=== PATIENT | male | born 1960 | race Caucasian/White ===

== ENCOUNTER 2017-08-15 07:47 | Inpatient (IN) | payer BC, OTHER ==
[2017-08-15 07:57] LABS: ADD MAN DIFF? NO
[2017-08-15 08:00] LABS: BASO % 1 % (0-3); EOS % 1 % (0-3); HEMATOCRIT 47.7 % (39.0-53.0); HEMOGLOBIN 16.4 g/dL (13.0-17.5); LYMPH # 1.4 x10^3/uL (1.0-4.8); LYMPH % 20 % (24-48); MEAN CORPUSCULAR HEMOGLOBIN 31 pg (25-35); MEAN CORPUSCULAR HGB CONC 35 g/dL (31-37); MEAN CORPUSCULAR VOLUME 89 fL (79-100); MONO # 0.6 x10^3/uL (0.0-1.1); MONO % 8 % (0-9); NEUT % 71 % (31-73); PLATELET COUNT 232 x10^3/uL (140-400); RED BLOOD COUNT 5.39 x10^6/uL (4.30-5.70)
[2017-08-15] MEDS ORDERED: 0.9 % SODIUM CHLORIDE 10 ML DISP.SYRIN. IV (08:00)
[2017-08-15] MEDS: NITROGLYCERIN SUBLINGUAL 0.4 MG BOTTLE OF 25. SL (08:02)
[2017-08-15] MEDS: IV NORMAL SALINE 1000ML BAG 1,000 ML IV ×3 (08:02→19:56)
[2017-08-15 08:09] LABS: ANION GAP 7 (6-14); BLOOD UREA NITROGEN 19 mg/dL (8-26); CALCIUM 9.3 mg/dL (8.5-10.1); CARBON DIOXIDE 28 mmol/L (21-32); CHLORIDE 102 mmol/L (98-107); CREATININE 0.9 mg/dL (0.7-1.3); GFR 86.4; GLUCOSE 111 mg/dL (70-99); SODIUM 137 mmol/L (136-145)
[2017-08-15] MEDS: MORPHINE SULFATE 4 MG/ML DISP.SYRIN. IV/SQ ×2 (08:14→09:45)
[2017-08-15 08:15] LABS: ALBUMIN 3.8 g/dL (3.4-5.0); ALK PHOS 93 U/L (46-116); ALT (SGPT) 39 U/L (16-63); AST (SGOT) 24 U/L (15-37); DIRECT BILIRUBIN 0.1 mg/dL (0.0-0.2); LIPASE 80 U/L (73-393); MAGNESIUM 2.1 mg/dL (1.8-2.4); TOTAL BILIRUBIN 0.6 mg/dL (0.2-1.0); TOTAL PROTEIN 7.7 g/dL (6.4-8.2)
[2017-08-15 08:19] LABS: TROPONINI < 0.017 ng/mL (0.000-0.055)
[2017-08-15 08:23] LABS: NT-PRO BNP 40 pg/mL (0-124); THYROID STIM HORMONE (TSH) 2.769 uIU/mL (0.358-3.74)
[2017-08-15 08:23] LABS: CKMB INDEX 3.1 % (0-4); CKMB MASS 5.5 ng/mL (0.0-3.6); CREATINE KINASE 180 U/L (39-308)
[2017-08-15] MEDS ORDERED: ONDANSETRON PF 4 MG/2 ML VIAL. IV (09:00)
[2017-08-15 09:32] LABS: BILIRUBIN,URINE NEGATIVE (NEG); CLARITY,URINE CLEAR; COLOR,URINE YELLOW; GLUCOSE,URINE NEGATIVE (NEG); NITRITE,URINE NEGATIVE (NEG); PROTEIN,URINE NEGATIVE (NEG-TRACE); UROBILINOGEN,URINE 0.2 mg/dL (0.2 mg/dL)
[2017-08-15 09:41] LABS: BACTERIA,URINE MODERATE /HPF (0-FEW); SQUAMOUS EPITHELIAL CELL,UR MANY /LPF
[2017-08-15] MEDS: KETOROLAC 30 MG/ML INJ. IV (11:00)
[2017-08-15 12:16] LABS: TROPONINI < 0.017 ng/mL (0.000-0.055)
[2017-08-15] MEDS: MORPHINE SULFATE 4 MG/ML DISP.SYRIN. IV ×3 (15:05→19:56)
[2017-08-15 15:56] LABS: TROPONINI < 0.017 ng/mL (0.000-0.055)
[2017-08-16] MEDS: MORPHINE SULFATE 4 MG/ML DISP.SYRIN. IV (02:32)
[2017-08-16] MEDS: IV NORMAL SALINE 1000ML BAG 1,000 ML IV (02:36)
[2017-08-16 07:04] LABS: CHOLESTEROL 159 mg/dL (0-200); HDLC 38 mg/dL (40-60); LDLC 105 mg/dL (0-100); NON-HDL CHOLESTEROL 121 mg/dL (0-129); TRIGLYCERIDES 82 mg/dL (0-150); VLDLC 16 mg/dL (0-40)
[2017-08-16 07:10] LABS: CHOLESTEROL/HDL RATIO 4.2
[2017-08-16] MEDS: REGADENOSON 0.4 MG/5 ML DISP.SYRIN. IV (09:22)
[2017-08-16] MEDS: ONDANSETRON PF 4 MG/2 ML VIAL. IV ×2 (13:08→17:04)
[2017-08-16] MEDS: PANTOPRAZOLE IV PUSH 40 MG VIAL. IVP (13:22)
[2017-08-16] MEDS: fentaNYL PF VIAL 100 MCG/2 ML VIAL IV ×2 (13:23→20:38)
[2017-08-16] MEDS: IV DEXTROSE 5% - 0.9 % NACL 1,000 ML IV (17:05)
[2017-08-17] MEDS: fentaNYL PF VIAL 100 MCG/2 ML VIAL IV ×4 (01:49→12:19)
[2017-08-17] MEDS: IV DEXTROSE 5% - 0.9 % NACL 1,000 ML IV (01:54)
[2017-08-17] MEDS ORDERED: fentaNYL PF VIAL 100 MCG/2 ML VIAL IV ×2 (11:45)
[2017-08-17] MEDS ORDERED: MORPHINE SULFATE 4 MG/ML DISP.SYRIN. IV (11:45)
[2017-08-17] MEDS ORDERED: LIDOCAINE 1% PF 2 ML VIAL. ID (11:45)
[2017-08-17] MEDS ORDERED: HYDROmorphone 2 MG/ML VIAL IV (11:45)
[2017-08-17] MEDS ORDERED: PROCHLORPERAZINE 10 MG/2 ML VIAL. IV (11:45)
[2017-08-17] MEDS: ONDANSETRON PF 4 MG/2 ML VIAL. IV (13:26)
[2017-08-17] MEDS ORDERED: GLUCAGON,HUMAN RECOMBINANT 1 MG/ML VIAL. (15:31)
[2017-08-17] MEDS: IV RINGERS,LACTATED 1000ML 1,000 ML IV (15:42)
[2017-08-17] MEDS ORDERED: ROCURONIUM 50 MG/5 ML VIAL. (17:18)
[2017-08-17] MEDS ORDERED: PROPOFOL 20 ML IV (17:18)
[2017-08-17] MEDS ORDERED: LIDOCAINE 1% PF 5 ML VIAL. (17:18)
[2017-08-17] MEDS ORDERED: fentaNYL PF VIAL 100 MCG/2 ML VIAL (17:19)
[2017-08-17] MEDS ORDERED: DESFLURANE 31 TO 60 MINUTES IH (18:34)
[2017-08-17] MEDS ORDERED: DEXAMETHASONE SOD PHOS 20 MG/5 ML VIAL. (18:34)
[2017-08-17] MEDS: BUPIVACAINE-EPI 0.25%-1:200000 50 ML VIAL. (18:39)
[2017-08-17] MEDS: SURGICEL HEMOSTAT 4X8 EACH. (18:39)
[2017-08-17] MEDS: IOHEXOL 300 MG/ML 100ML VIAL. (18:39)
[2017-08-17] MEDS ORDERED: GLYCOPYRROLATE 1 MG/5 ML VIAL. (18:41)
[2017-08-17] MEDS ORDERED: NEOSTIGMINE 10 MG/10 ML VIAL. (18:41)
[2017-08-17] MEDS ORDERED: ONDANSETRON PF 4 MG/2 ML VIAL. (18:42)
[2017-08-17] MEDS ORDERED: oxyCODONE/APAP 5/325 1 TAB TABLET PO (19:30)
[2017-08-17] MEDS ORDERED: diphenhydrAMINE 50 MG/ML VIAL IV (19:30)
[2017-08-17] MEDS ORDERED: 0.9 % SODIUM CHLORIDE 10 ML DISP.SYRIN. IV (19:30)
[2017-08-17] MEDS ORDERED: diphenhydrAMINE HCL 25 MG CAPSULE PO (19:30)
[2017-08-17] MEDS ORDERED: DEXTROSE 50% 25 GM / 50ML DISP.SYRIN. IV (19:30)
[2017-08-17] MEDS: DOCUSATE SODIUM 100 MG CAPSULE. PO (21:56)
[2017-08-17] MEDS: oxyCODONE/APAP 5/325 1 TAB TABLET PO (21:57)
[2017-08-17] MEDS: MORPHINE SULFATE 4 MG/ML DISP.SYRIN. IV (23:34)
[2017-08-18] MEDS: IV DEXTROSE 5% - 0.9 % NACL 1,000 ML IV ×2 (00:50→12:16)
[2017-08-18] MEDS: MORPHINE SULFATE 4 MG/ML DISP.SYRIN. IV ×2 (05:13→13:38)
[2017-08-18] MEDS: DOCUSATE SODIUM 100 MG CAPSULE. PO ×2 (08:58→20:35)
[2017-08-18] MEDS: ENOXAPARIN 40 MG/0.4 ML SYRINGE. SQ (08:58)
[2017-08-18] MEDS: AMOXICILLIN/K CLAV 875/125MG TABLET. PO ×2 (10:06→20:35)
[2017-08-18] MEDS: LACTOBACILLUS RHAMNOSUS GG 1 CAPSULE. PO (20:35)
[2017-08-18] MEDS: TAMSULOSIN 0.4 MG CAP.ER.24H. PO (20:35)
[2017-08-18] MEDS: oxyCODONE/APAP 5/325 1 TAB TABLET PO (20:36)
[2017-08-18] MEDS: guaiFENesin DM 200MG/20MG 10 ML SYRUP PO (22:33)
[2017-08-19] MEDS: ONDANSETRON PF 4 MG/2 ML VIAL. IV ×2 (00:07→13:10)
[2017-08-19] MEDS: IV DEXTROSE 5% - 0.9 % NACL 1,000 ML IV ×3 (00:08→21:24)
[2017-08-19] MEDS: IPRATRPIUM/ALBUTEROL 0.5/2.5MG 3 ML NEBU. NEB ×3 (00:17→19:38)
[2017-08-19] MEDS: oxyCODONE/APAP 5/325 1 TAB TABLET PO ×2 (04:41→16:42)
[2017-08-19] MEDS: guaiFENesin DM 200MG/20MG 10 ML SYRUP PO (06:59)
[2017-08-19] MEDS: LACTOBACILLUS RHAMNOSUS GG 1 CAPSULE. PO ×2 (08:22→21:26)
[2017-08-19] MEDS: AMOXICILLIN/K CLAV 875/125MG TABLET. PO ×2 (08:22→21:23)
[2017-08-19] MEDS: DOCUSATE SODIUM 100 MG CAPSULE. PO ×2 (08:22→21:23)
[2017-08-19] MEDS: ENOXAPARIN 40 MG/0.4 ML SYRINGE. SQ (08:25)
[2017-08-19] MEDS ORDERED: METOCLOPRAMIDE HCL 10 MG/2 ML VIAL. IV (08:30)
[2017-08-19 09:45] LABS: ADD MAN DIFF? NO
[2017-08-19 10:02] LABS: BASO % 1 % (0-3); EOS # 0.1 x10^3/uL (0.0-0.7); EOS % 1 % (0-3); HEMATOCRIT 45.9 % (39.0-53.0); HEMOGLOBIN 15.5 g/dL (13.0-17.5); LYMPH % 13 % (24-48); MEAN CORPUSCULAR HEMOGLOBIN 30 pg (25-35); MEAN CORPUSCULAR HGB CONC 34 g/dL (31-37); MEAN CORPUSCULAR VOLUME 89 fL (79-100); MONO # 0.6 x10^3/uL (0.0-1.1); MONO % 8 % (0-9); NEUT % 78 % (31-73); PLATELET COUNT 251 x10^3/uL (140-400); RED BLOOD COUNT 5.14 x10^6/uL (4.30-5.70); RED CELL DISTRIBUTION WIDTH 12.5 % (11.5-14.5); WHITE BLOOD COUNT 7.6 x10^3/uL (4.0-11.0)
[2017-08-19 10:08] LABS: ANION GAP 12 (6-14); BLOOD UREA NITROGEN 13 mg/dL (8-26); CALCIUM 7.9 mg/dL (8.5-10.1); CARBON DIOXIDE 27 mmol/L (21-32); CHLORIDE 103 mmol/L (98-107); CREATININE 0.8 mg/dL (0.7-1.3); GFR 98.9; GLUCOSE 113 mg/dL (70-99); POTASSIUM 3.5 mmol/L (3.5-5.1); SODIUM 142 mmol/L (136-145)
[2017-08-19] MEDS: FAMOTIDINE 20 MG TABLET. PO ×2 (10:25→21:23)
[2017-08-19] MEDS ORDERED: INSULIN LISPRO 300 UNITS/3 ML INSULN.PEN. SQ (21:00)
[2017-08-19] MEDS: TAMSULOSIN 0.4 MG CAP.ER.24H. PO (21:23)
[2017-08-20 04:47] LABS: ADD MAN DIFF? NO
[2017-08-20 04:54] LABS: BASO % 1 % (0-3); EOS # 0.1 x10^3/uL (0.0-0.7); EOS % 2 % (0-3); HEMATOCRIT 41.1 % (39.0-53.0); HEMOGLOBIN 14.2 g/dL (13.0-17.5); LYMPH % 17 % (24-48); MEAN CORPUSCULAR HEMOGLOBIN 31 pg (25-35); MEAN CORPUSCULAR HGB CONC 35 g/dL (31-37); MEAN CORPUSCULAR VOLUME 89 fL (79-100); MONO # 0.5 x10^3/uL (0.0-1.1); MONO % 9 % (0-9); NEUT # 4.2 x10^3uL (1.8-7.7); NEUT % 71 % (31-73); PLATELET COUNT 237 x10^3/uL (140-400); RED BLOOD COUNT 4.63 x10^6/uL (4.30-5.70); RED CELL DISTRIBUTION WIDTH 12.8 % (11.5-14.5); WHITE BLOOD COUNT 5.9 x10^3/uL (4.0-11.0)
[2017-08-20 05:15] LABS: ANION GAP 6 (6-14); BLOOD UREA NITROGEN 12 mg/dL (8-26); CALCIUM 8.5 mg/dL (8.5-10.1); CARBON DIOXIDE 29 mmol/L (21-32); CHLORIDE 104 mmol/L (98-107); CREATININE 0.7 mg/dL (0.7-1.3); GFR 115.4; GLUCOSE 100 mg/dL (70-99); POTASSIUM 3.1 mmol/L (3.5-5.1); SODIUM 139 mmol/L (136-145)
[2017-08-20] MEDS: IPRATRPIUM/ALBUTEROL 0.5/2.5MG 3 ML NEBU. NEB ×4 (07:12→19:11)
[2017-08-20] MEDS: ONDANSETRON PF 4 MG/2 ML VIAL. IV ×2 (07:31→17:59)
[2017-08-20] MEDS: DOCUSATE SODIUM 100 MG CAPSULE. PO ×2 (08:34→20:53)
[2017-08-20] MEDS: FAMOTIDINE 20 MG TABLET. PO ×2 (08:34→20:53)
[2017-08-20] MEDS: AMOXICILLIN/K CLAV 875/125MG TABLET. PO ×2 (08:34→20:53)
[2017-08-20] MEDS: LACTOBACILLUS RHAMNOSUS GG 1 CAPSULE. PO ×2 (08:34→20:53)
[2017-08-20] MEDS: ENOXAPARIN 40 MG/0.4 ML SYRINGE. SQ (08:37)
[2017-08-20] MEDS: IV DEXTROSE 5% - 0.9 % NACL 1,000 ML IV (09:00)
[2017-08-20] MEDS: POTASSIUM CHLORIDE 40 MEQ in IV NORMAL SALINE 500ML BAG 500 ML IV (09:55)
[2017-08-20] MEDS: METOCLOPRAMIDE 10 MG TABLET. PO ×2 (11:46→16:46)
[2017-08-20] MEDS: POTASSIUM CL 20MEQ D5-0.45NACL 1,000 ML IV (14:45)
[2017-08-20] MEDS: POLYETHYLENE GLYCOL 3350 17 GM PACKET. PO (14:51)
[2017-08-20] MEDS: TAMSULOSIN 0.4 MG CAP.ER.24H. PO (20:53)
[2017-08-21] MEDS: POTASSIUM CL 20MEQ D5-0.45NACL 1,000 ML IV ×2 (04:12→21:07)
[2017-08-21] MEDS: IPRATRPIUM/ALBUTEROL 0.5/2.5MG 3 ML NEBU. NEB ×4 (07:35→19:34)
[2017-08-21] MEDS: METOCLOPRAMIDE 10 MG TABLET. PO ×3 (08:48→21:06)
[2017-08-21] MEDS: DOCUSATE SODIUM 100 MG CAPSULE. PO ×2 (10:09→21:00)
[2017-08-21] MEDS: FAMOTIDINE 20 MG TABLET. PO ×2 (10:09→21:00)
[2017-08-21] MEDS: AMOXICILLIN/K CLAV 875/125MG TABLET. PO ×2 (10:09→21:06)
[2017-08-21] MEDS: POLYETHYLENE GLYCOL 3350 17 GM PACKET. PO (10:10)
[2017-08-21] MEDS: ENOXAPARIN 40 MG/0.4 ML SYRINGE. SQ (10:10)
[2017-08-21] MEDS: LACTOBACILLUS RHAMNOSUS GG 1 CAPSULE. PO ×2 (10:10→21:06)
[2017-08-21 12:21] LABS: ADD MAN DIFF? NO
[2017-08-21 12:31] LABS: BASO % 0 % (0-3); EOS # 0.1 x10^3/uL (0.0-0.7); EOS % 1 % (0-3); HEMATOCRIT 48.2 % (39.0-53.0); HEMOGLOBIN 16.7 g/dL (13.0-17.5); LYMPH # 0.9 x10^3/uL (1.0-4.8); LYMPH % 11 % (24-48); MEAN CORPUSCULAR HEMOGLOBIN 31 pg (25-35); MEAN CORPUSCULAR HGB CONC 35 g/dL (31-37); MEAN CORPUSCULAR VOLUME 89 fL (79-100); MONO # 0.7 x10^3/uL (0.0-1.1); MONO % 8 % (0-9); NEUT # 6.4 x10^3uL (1.8-7.7); NEUT % 79 % (31-73); PLATELET COUNT 292 x10^3/uL (140-400); RED BLOOD COUNT 5.43 x10^6/uL (4.30-5.70); RED CELL DISTRIBUTION WIDTH 12.7 % (11.5-14.5)
[2017-08-21 12:57] LABS: ALBUMIN 3.1 g/dL (3.4-5.0); ALBUMIN/GLOBULIN RATIO 0.7 (1.0-1.7); ALK PHOS 70 U/L (46-116); ALT (SGPT) 37 U/L (16-63); ANION GAP 9 (6-14); AST (SGOT) 25 U/L (15-37); BLOOD UREA NITROGEN 12 mg/dL (8-26); BUN/CREATININE RATIO 15 (6-20); CALCIUM 8.6 mg/dL (8.5-10.1); CARBON DIOXIDE 28 mmol/L (21-32); CHLORIDE 102 mmol/L (98-107); CREATININE 0.8 mg/dL (0.7-1.3); GFR 98.9; GLUCOSE 117 mg/dL (70-99); POTASSIUM 3.6 mmol/L (3.5-5.1); SODIUM 139 mmol/L (136-145); TOTAL BILIRUBIN 0.8 mg/dL (0.2-1.0); TOTAL PROTEIN 7.3 g/dL (6.4-8.2)
[2017-08-21] MEDS: ONDANSETRON PF 4 MG/2 ML VIAL. IV (13:11)
[2017-08-21] MEDS: BISACODYL 10 MG SUPP.RECT. PR (15:28)
[2017-08-21] MEDS: MORPHINE SULFATE 4 MG/ML DISP.SYRIN. IV (19:18)
[2017-08-21] MEDS: TAMSULOSIN 0.4 MG CAP.ER.24H. PO (21:00)
[2017-08-22] MEDS: oxyCODONE/APAP 5/325 1 TAB TABLET PO ×2 (01:22→11:44)
[2017-08-22 05:39] LABS: ADD MAN DIFF? NO
[2017-08-22] MEDS: POTASSIUM CL 20MEQ D5-0.45NACL 1,000 ML IV ×3 (05:50→23:23)
[2017-08-22 06:02] LABS: BASO % 0 % (0-3); EOS # 0.1 x10^3/uL (0.0-0.7); EOS % 1 % (0-3); HEMATOCRIT 43.4 % (39.0-53.0); LYMPH # 0.7 x10^3/uL (1.0-4.8); LYMPH % 9 % (24-48); MEAN CORPUSCULAR HEMOGLOBIN 31 pg (25-35); MEAN CORPUSCULAR HGB CONC 35 g/dL (31-37); MEAN CORPUSCULAR VOLUME 88 fL (79-100); MONO # 0.6 x10^3/uL (0.0-1.1); MONO % 7 % (0-9); NEUT # 6.8 x10^3uL (1.8-7.7); NEUT % 83 % (31-73); PLATELET COUNT 271 x10^3/uL (140-400); RED BLOOD COUNT 4.91 x10^6/uL (4.30-5.70); RED CELL DISTRIBUTION WIDTH 12.9 % (11.5-14.5); WHITE BLOOD COUNT 8.3 x10^3/uL (4.0-11.0)
[2017-08-22 06:30] LABS: ALBUMIN 2.6 g/dL (3.4-5.0); ALBUMIN/GLOBULIN RATIO 0.7 (1.0-1.7); ALK PHOS 60 U/L (46-116); ALT (SGPT) 33 U/L (16-63); ANION GAP 8 (6-14); AST (SGOT) 21 U/L (15-37); BLOOD UREA NITROGEN 14 mg/dL (8-26); BUN/CREATININE RATIO 20 (6-20); CARBON DIOXIDE 27 mmol/L (21-32); CHLORIDE 102 mmol/L (98-107); CREATININE 0.7 mg/dL (0.7-1.3); GFR 115.4; GLUCOSE 116 mg/dL (70-99); POTASSIUM 3.7 mmol/L (3.5-5.1); SODIUM 137 mmol/L (136-145); TOTAL BILIRUBIN 0.8 mg/dL (0.2-1.0); TOTAL PROTEIN 6.2 g/dL (6.4-8.2)
[2017-08-22] MEDS: IPRATRPIUM/ALBUTEROL 0.5/2.5MG 3 ML NEBU. NEB ×4 (08:30→19:31)
[2017-08-22] MEDS: LACTOBACILLUS RHAMNOSUS GG 1 CAPSULE. PO ×2 (09:37→21:35)
[2017-08-22] MEDS: ENOXAPARIN 40 MG/0.4 ML SYRINGE. SQ (09:37)
[2017-08-22] MEDS: POLYETHYLENE GLYCOL 3350 17 GM PACKET. PO (09:37)
[2017-08-22] MEDS: AMOXICILLIN/K CLAV 875/125MG TABLET. PO ×2 (09:37→21:35)
[2017-08-22] MEDS: DOCUSATE SODIUM 100 MG CAPSULE. PO ×2 (09:37→21:35)
[2017-08-22] MEDS: FAMOTIDINE 20 MG TABLET. PO (09:37)
[2017-08-22] MEDS: METOCLOPRAMIDE 10 MG TABLET. PO ×2 (10:31→17:14)
[2017-08-22] MEDS: PANTOPRAZOLE 40 MG TABLET.DR. PO (11:44)
[2017-08-22] MEDS: ONDANSETRON PF 4 MG/2 ML VIAL. IV ×2 (12:15→20:49)
[2017-08-22] MEDS: TAMSULOSIN 0.4 MG CAP.ER.24H. PO (21:35)
[2017-08-23] MEDS: METOCLOPRAMIDE 10 MG TABLET. PO ×3 (00:05→12:58)
[2017-08-23] MEDS: oxyCODONE/APAP 5/325 1 TAB TABLET PO (01:03)
[2017-08-23 05:08] LABS: ADD MAN DIFF? NO
[2017-08-23 05:23] LABS: BASO % 0 % (0-3); EOS # 0.2 x10^3/uL (0.0-0.7); EOS % 2 % (0-3); HEMATOCRIT 43.5 % (39.0-53.0); HEMOGLOBIN 15.1 g/dL (13.0-17.5); LYMPH # 0.7 x10^3/uL (1.0-4.8); LYMPH % 10 % (24-48); MEAN CORPUSCULAR HEMOGLOBIN 31 pg (25-35); MEAN CORPUSCULAR HGB CONC 35 g/dL (31-37); MEAN CORPUSCULAR VOLUME 89 fL (79-100); MONO # 0.6 x10^3/uL (0.0-1.1); MONO % 9 % (0-9); NEUT # 5.5 x10^3uL (1.8-7.7); NEUT % 78 % (31-73); PLATELET COUNT 297 x10^3/uL (140-400); RED BLOOD COUNT 4.88 x10^6/uL (4.30-5.70); RED CELL DISTRIBUTION WIDTH 13.1 % (11.5-14.5); WHITE BLOOD COUNT 7.1 x10^3/uL (4.0-11.0)
[2017-08-23 05:57] LABS: ALBUMIN 2.7 g/dL (3.4-5.0); ALBUMIN/GLOBULIN RATIO 0.8 (1.0-1.7); ALK PHOS 61 U/L (46-116); ALT (SGPT) 35 U/L (16-63); ANION GAP 8 (6-14); AST (SGOT) 16 U/L (15-37); BLOOD UREA NITROGEN 9 mg/dL (8-26); BUN/CREATININE RATIO 11 (6-20); CALCIUM 8.1 mg/dL (8.5-10.1); CARBON DIOXIDE 26 mmol/L (21-32); CHLORIDE 103 mmol/L (98-107); CREATININE 0.8 mg/dL (0.7-1.3); GFR 98.9; GLUCOSE 105 mg/dL (70-99); SODIUM 137 mmol/L (136-145); TOTAL BILIRUBIN 0.9 mg/dL (0.2-1.0); TOTAL PROTEIN 6.3 g/dL (6.4-8.2)
[2017-08-23] MEDS: IPRATRPIUM/ALBUTEROL 0.5/2.5MG 3 ML NEBU. NEB ×2 (07:46→11:09)
[2017-08-23] MEDS: POLYETHYLENE GLYCOL 3350 17 GM PACKET. PO (08:09)
[2017-08-23] MEDS: LACTOBACILLUS RHAMNOSUS GG 1 CAPSULE. PO (08:09)
[2017-08-23] MEDS: AMOXICILLIN/K CLAV 875/125MG TABLET. PO (08:09)
[2017-08-23] MEDS: PANTOPRAZOLE 40 MG TABLET.DR. PO (08:09)
[2017-08-23] MEDS: DOCUSATE SODIUM 100 MG CAPSULE. PO (08:10)
[2017-08-23] MEDS: ENOXAPARIN 40 MG/0.4 ML SYRINGE. SQ (08:10)
[2017-08-23] MEDS: POTASSIUM CL 20MEQ D5-0.45NACL 1,000 ML IV (08:39)
== END 2017-08-23 16:29 | disposition home or self-care (01) | DRG 418 ==
LOC: ER 07:47 → 5 NORTH 09:00
PROC: 0FT44ZZ Resection of Gallbladder, Percutaneous Endoscopic Approach (ICD-10-PCS; principal; 2017-08-17 16:00)
PROC: BF101ZZ Fluoroscopy of Bile Ducts using Low Osmolar Contrast (ICD-10-PCS; 2017-08-17 16:00)
DX: K80.00 Calculus of gallbladder with acute cholecystitis without obstruction (principal); N39.0 Urinary tract infection, site not specified; E87.6 Hypokalemia; R07.89 Other chest pain; K21.9 Gastro-esophageal reflux disease without esophagitis; Z82.49 Family history of ischemic heart disease and other diseases of the circulatory system; Z87.11 Personal history of peptic ulcer disease; Z87.442 Personal history of urinary calculi
CPT/HCPCS: 36415; 71045; 74018; 74300; 76700; 76770; 78452; 80048; 80053; 80061; 80076; 81001; 82553; 83690; 83735; 83880; 84443; 84484; 85025; 87086; 88304; 93005; 93017; 93306; 94640; 94760; 96361; 96374; 96375; 96376; 97162-GP; 99285; 99285-25; A9500; C9113; J0690; J1100; J1610; J1650; J1815; J1885; J2270; J2405; J2704; J2710; J2785; J3010; J3490; J7030; J7040; J7042; J7120; J7620; J8597; Q9967

== ENCOUNTER 2017-10-06 18:24 | Emergency (ER) | payer BC | END 2017-10-06 19:19 | disposition home or self-care (01) | LOC: ER 18:24 | DX: H10.9 Unspecified conjunctivitis (principal); H54.62 Unqualified visual loss, left eye, normal vision right eye; H35.30 Unspecified macular degeneration; K21.9 Gastro-esophageal reflux disease without esophagitis; Z90.49 Acquired absence of other specified parts of digestive tract | CPT/HCPCS: 99282 ==